=== PATIENT | male | born 1955 | race Caucasian/White ===

== ENCOUNTER 2021-10-18 07:10 | Emergency (ER) | payer OTHER, MEDICARE, SELFPAY ==
[2021-10-18] VITALS (17 sets, daily range): BP systolic 91–174; BP diastolic 56–90; PULSE 58–85; RESP 11–18; TEMP 37.8; O2SAT 95–100; BMI 29.8
--- NOTE | 2021-10-18 07:19 | DI.RAD.S_ITS ---
PROCEDURE: XR CHEST 1V INDICATIONS: syncope TECHNIQUE: One view of the chest was acquired. COMPARISON: [facility], , CHEST 1 VIEW, 03/03/2012, 18:41. FINDINGS: Surgical changes and devices: None. Lungs and pleura: Lungs are clear. No pleural effusions or pneumothorax. Mediastinum: Mediastinal contours appear normal. Heart size is normal. Lungs are hypoinflated possibly due to poor inspiratory effort. Bones and chest wall: No suspicious bony lesions. Overlying soft tissues appear unremarkable. IMPRESSION: No acute cardiopulmonary disease process. Dictated by: Carmen Araujo MD, PhD on 10/18/2021 at 8:03 Approved by: Carmen Araujo MD, PhD on 10/18/2021 at 8:04
--- NOTE | 2021-10-18 07:19 | DI.CT.S_ITS ---
PROCEDURE: CT CERVICAL SPINE WO CON INDICATIONS: syncope, neck pain TECHNIQUE: Noncontrast 3 mm thick sections acquired from the skull base to the T4 level. Sagittal and coronal reformats were then constructed. For radiation dose reduction, the following was used: automated exposure control, adjustment of mA and/or kV according to patient size. COMPARISON: None. FINDINGS: Image quality: Excellent. Bones: No fractures or dislocations. Visualized superior ribs are intact. Spine degenerative disc disease and facet arthropathy. Soft tissues: Prevertebral soft tissues are normal in thickness. No paravertebral hematomas. No apical pneumothoraces. IMPRESSION: No fracture. No acute osseous lesion. If symptoms and/or clinical suspicion for pathology persists, evaluation with MRI should be considered for further assessment. Dictated by: Carmen Araujo MD, PhD on 10/18/2021 at 7:59 Approved by: Carmen Araujo MD, PhD on 10/18/2021 at 8:02
--- NOTE | 2021-10-18 07:19 | DI.CT.S_ITS ---
PROCEDURE: CT HEAD/BRAIN WO CON INDICATIONS: syncope, fall, neck pain TECHNIQUE: Noncontrast 4.5 mm thick angled axial sections acquired from the foramen magnum to the vertex, with coronal and sagittal reformats. For radiation dose reduction, the following was used: automated exposure control, adjustment of mA and/or kV according to patient size. COMPARISON: None. FINDINGS: Image quality: Excellent. CSF spaces: Basal cisterns are patent. No extra-axial fluid collections. The ventricles are symmetric in size and shape. Brain: No intracranial bleeds or masses. There is cerebral volume loss for age, with resultant ventricular and sulcal prominence. There are periventricular and deep white matter chronic small vessel ischemic changes. There is intracranial internal carotid artery atherosclerosis. Skull and face: Calvarium and visualized facial bones appear intact, without suspicious lesions. Sinuses: Visualized sinuses and mastoids are clear. IMPRESSION: No acute intracranial disease process. Dictated by: Carmen Araujo MD, PhD on 10/18/2021 at 7:57 Approved by: Carmen Araujo MD, PhD on 10/18/2021 at 7:58
--- NOTE | 2021-10-18 07:21 | ED_ITS ---
HPI - Syncope General Chief Complaint: Dizziness Stated Complaint: Syncope/SOB Time Seen by Provider: 10/18/21 07:19 Source: patient and EMS Mode of arrival: EMS Limitations: no limitations History of Present Illness HPI narrative: This is a 66-year-old male with a history of gout and anxiety. Patient presents for syncope. He had been up about the house earlier today in his office he felt like he was going to pass out felt the world tunneling in tried to get to the bathroom to wash his face or put some cold water on it and passed out and struck likely his neck on that side of the wall. Patient has had 1 prior syncopal episode about 5 years ago. Because was never found. Patient states he felt fine this morning although he has had some nasal congestion, mild productive cough with clear sputum and sore throat. Patient denies any fevers. He denies any headache, chest pain, abdominal back or flank pain prior to or after the episode. Patient denies any nausea or vomiting. He denies any loss of bowel or bladder control. No recent diarrhea constipation, no dysuria urgency or frequency. Patient has not had any rashes or skin changes. Patient has not had any prior surgeries. No known drug allergies. No tobacco, he stopped drinking alcohol when he started his gout medications, no illicit. He lives independently with his . In route with EMS patient's pressures dropped significantly and he was given push dose pressors x2 which improved his pressors to 120s. He got as low as 60 systolic when upright. Related Data Home Medications Medication Instructions Recorded Confirmed FOLIC ACID/VIT A/VIT B1/VIT 1 tab PO QDAY #0 03/03/12 (#MULTI-VITAMIN) lorazepam 1 mg tablet (Ativan) 0.5 mg PO PRN #0 03/13/12 sertraline 50 mg tablet (Zoloft) 50 mg PO QDAY #0 03/13/12 Previous Rx's Medication Instructions Recorded ondansetron 4 mg disintegrating 4 mg SUBLINGUAL Q4HP PRN #15 odt 06/30/17 tablet (Zofran ODT) Review of Systems Review of Systems ROS Unobtainable: All systems reviewed & are unremarkable except as noted in HPI and below Patient History Medical History Gout Social History Smoking Status: Former smoker Exam Narrative Exam Narrative: GEN: well nourished, ill-appearing, alert and oriented x 3, patient appears to be in mild distress. HEENT: Atraumatic, pupils are equal round reactive to light, extraocular movements are intact, nares are clear, TMs are clear with no fluid, there is no conjunctival pallor. Throat is clear without any exudates, erythema, tonsillar enlargement or uvular deviation, patient is in C-collar. No vertebral tenderness. HEART: Regular rate and rhythm without murmur, clicks, rubs. Pulses are equal in upper and lower extremities LUNGS:Lungs clear to auscultation, no wheezes, rales, crackles, chest moves symmetrically ABD:bowel sounds normal, soft, non-tender, no guarding, rebound, rigidity, no masses noted, no hepatosplenomegaly :No CVA tenderness MSCL: Non-tender, no muscle atrophy, muscles strength 5/5 upper and lower extremities, full range of motion NEURO:CN 2-12 intact, sensation normal SKIN: No rash, erythema or ecchymosis noted. Initial Vital Signs Initial Vital Signs: Vital Signs Temperature 100.1 F H 10/18/21 07:14 Pulse Rate 69 10/18/21 07:14 Respiratory Rate 18 10/18/21 07:14 Blood Pressure 154/78 H 10/18/21 07:14 Pulse Oximetry 99 10/18/21 07:14 Course Orders Ordered: Discontinued Medications Sodium Chloride (Normal Saline 0.9%) 1,000 mls @ 150 mls/hr IV CONT GAB Last Infusion: 10/18/21 10:24 Dose: 0 mls/hr Documented by: Infusion: 10/18/21 09:21 Dose: 999 mls/hr Documented by: Admin: 10/18/21 07:28 Dose: 150 mls/hr Documented by: SOCORRO Sodium Chloride (Normal Saline 0.9%) 1,000 mls @ 1,000 mls/hr IV BOLUS ONE Stop: 10/18/21 10:18 Last Admin: 10/18/21 09:21 Dose: Not Given Documented by: SOCORRO Reevaluation(s) Reevaluation #1: reviewed findings so far. Plan for repeat trop/EKG at 2 hours patient is feeling much better. Reevaluation #2: Patient ambulating to the bathroom without issue. Time: 10:26 Vital Signs Vital signs: Vital Signs - 8 hr 10/18/21 07:14 10/18/21 07:21 10/18/21 07:27 Temperature 100.1 F H 100.1 F H Pulse Rate 69 70 70 Respiratory Rate 18 16 18 Blood Pressure 154/78 H 154/78 H Pulse Oximetry 99 99 100 10/18/21 07:30 10/18/21 07:45 10/18/21 08:00 Temperature Pulse Rate 70 72 70 Respiratory Rate 14 12 Blood Pressure 155/84 H 165/90 H 165/89 H Pulse Oximetry 100 99 99 10/18/21 08:14 10/18/21 08:15 Temperature Pulse Rate 74 73 Respiratory Rate 12 18 Blood Pressure 170/85 H 174/82 H Pulse Oximetry 98 98 MDM - Syncope Lab Data Result diagrams: 10/18/21 07:10 10/18/21 07:10 Labs: Lab Results 10/18/21 10/18/21 10/18/21 Range/Units 07:10 07:10 07:10 WBC 5.2 (4.5-11.0) X10^3/uL RBC 4.55 (4.5-5.9) X10^6/uL Hgb 13.5 (13.5-17.5) g/dL Hct 39.4 L (41-53) % MCV 86.6 (80-100) fL MCH 29.7 (26-34) PG MCHC 34.2 (30-36) % RDW 13.9 (11.6-14.8) % Plt Count 179 (150-400) X10^3/uL Neut % (Auto) 70.9 (50-75) % Lymph % (Auto) 16.2 L (25-40) % Kerr % (Auto) 12.0 (3-14) % Eos % (Auto) 0.4 L (2-4) % Baso % (Auto) 0.5 (0-2) % Neut # (Auto) 3700 (8526-4184) /uL Lymph # (Auto) 800 L (7169-5063) /uL Kerr # (Auto) 600 (0-900) /uL Eos # (Auto) 0 (0-450) /uL Baso # (Auto) 0 (0-100) /uL PT 11.8 (10.1-12.7) SECONDS INR 1.0 (0.9-1.3) APTT 31 (26.4-36.2) SECONDS D-Dimer 280 H (<230) ng/mL Sodium 141 (137-145) mmol/L Potassium 4.3 (3.4-5.1) mmol/L Chloride 110 H (98-107) mmol/L Carbon Dioxide 21 L (22-32) mmol/L BUN 27 H (9-20) mg/dL Creatinine 1.12 (0.66-1.25) mg/dL Estimated GFR > 60 (>60) mL/min BUN/Creatinine Ratio 24.1 H (6-22) Glucose 130 H (80-110) mg/dL Lactate (0.7-2.1) mmol/L Calcium 8.2 L (8.4-10.2) mg/dL Total Bilirubin 0.5 (0.2-1.3) mg/dL AST 33 (17-59) IU/L ALT 26 (<50) IU/L Alkaline Phosphatase 107 (38-126) U/L Total Creatine Kinase 73 (55-170) U/L CK-MB (CK-2) TNP CK-MB (CK-2) Rel Index TNP Troponin I < 0.012 (0.01-0.034) ng/mL NT-Pro-B Natriuret Pep 85 (<125) pg/mL Total Protein 7.3 (6.3-8.2) g/dL Albumin 3.8 (3.5-5.0) g/dL Globulin 3.5 (1.7-4.1) g/dL Albumin/Globulin Ratio 1.1 (1.0-2.8) Lipase 92 (23-300) U/L Procalcitonin 0.10 (<0.5) ng/mL Urine Color Urine Appearance Urine pH (4.5-8.0) Ur Specific Montgomery (1.000-1.035) Urine Protein (Negative) Urine Glucose (UA) (Negative) g/dL Urine Ketones (NEGATIVE) Urine Occult Blood (Negative) Urine Nitrate (Negative) Urine Bilirubin (NEGATIVE) Urine Urobilinogen (0.2) E.U./dL Ur Leukocyte Esterase (NEGATIVE) Urine RBC (0-5/HPF) Urine WBC (0-5/HPF) Urine Bacteria (None) Ur Culture Indicated? SARS-CoV-2 (PCR) (Negative) 10/18/21 10/18/21 10/18/21 Range/Units 07:10 07:10 08:43 WBC (4.5-11.0) X10^3/uL RBC (4.5-5.9) X10^6/uL Hgb (13.5-17.5) g/dL Hct (41-53) % MCV (80-100) fL MCH (26-34) PG MCHC (30-36) % RDW (11.6-14.8) % Plt Count (150-400) X10^3/uL Neut % (Auto) (50-75) % Lymph % (Auto) (25-40) % Kerr % (Auto) (3-14) % Eos % (Auto) (2-4) % Baso % (Auto) (0-2) % Neut # (Auto) (6768-2534) /uL Lymph # (Auto) (7194-1285) /uL Kerr # (Auto) (0-900) /uL Eos # (Auto) (0-450) /uL Baso # (Auto) (0-100) /uL PT (10.1-12.7) SECONDS INR (0.9-1.3) APTT (26.4-36.2) SECONDS D-Dimer (<230) ng/mL Sodium (137-145) mmol/L Potassium (3.4-5.1) mmol/L Chloride (98-107) mmol/L Carbon Dioxide (22-32) mmol/L BUN (9-20) mg/dL Creatinine (0.66-1.25) mg/dL Estimated GFR (>60) mL/min BUN/Creatinine Ratio (6-22) Glucose (80-110) mg/dL Lactate 2.1 (0.7-2.1) mmol/L Calcium (8.4-10.2) mg/dL Total Bilirubin (0.2-1.3) mg/dL AST (17-59) IU/L ALT (<50) IU/L Alkaline Phosphatase (38-126) U/L Total Creatine Kinase (55-170) U/L CK-MB (CK-2) CK-MB (CK-2) Rel Index Troponin I (0.01-0.034) ng/mL NT-Pro-B Natriuret Pep (<125) pg/mL Total Protein (6.3-8.2) g/dL Albumin (3.5-5.0) g/dL Globulin (1.7-4.1) g/dL Albumin/Globulin Ratio (1.0-2.8) Lipase (23-300) U/L Procalcitonin (<0.5) ng/mL Urine Color Yellow Urine Appearance Clear Urine pH 7.0 (4.5-8.0) Ur Specific Montgomery 1.010 (1.000-1.035) Urine Protein Negative (Negative) Urine Glucose (UA) Negative (Negative) g/dL Urine Ketones Negative (NEGATIVE) Urine Occult Blood Trace-lysed (Negative) Urine Nitrate Negative (Negative) Urine Bilirubin Negative (NEGATIVE) Urine Urobilinogen 0.2 (0.2) E.U./dL Ur Leukocyte Esterase Negative (NEGATIVE) Urine RBC 1-5/hpf (0-5/HPF) Urine WBC 1-5/hpf (0-5/HPF) Urine Bacteria Occasional (0-1) (None) Ur Culture Indicated? Cult not indicated SARS-CoV-2 (PCR) Positive H (Negative) 10/18/21 Range/Units 09:26 WBC (4.5-11.0) X10^3/uL RBC (4.5-5.9) X10^6/uL Hgb (13.5-17.5) g/dL Hct (41-53) % MCV (80-100) fL MCH (26-34) PG MCHC (30-36) % RDW (11.6-14.8) % Plt Count (150-400) X10^3/uL Neut % (Auto) (50-75) % Lymph % (Auto) (25-40) % Kerr % (Auto) (3-14) % Eos % (Auto) (2-4) % Baso % (Auto) (0-2) % Neut # (Auto) (6552-4365) /uL Lymph # (Auto) (9255-0605) /uL Kerr # (Auto) (0-900) /uL Eos # (Auto) (0-450) /uL Baso # (Auto) (0-100) /uL PT (10.1-12.7) SECONDS INR (0.9-1.3) APTT (26.4-36.2) SECONDS D-Dimer (<230) ng/mL Sodium (137-145) mmol/L Potassium (3.4-5.1) mmol/L Chloride (98-107) mmol/L Carbon Dioxide (22-32) mmol/L BUN (9-20) mg/dL Creatinine (0.66-1.25) mg/dL Estimated GFR (>60) mL/min BUN/Creatinine Ratio (6-22) Glucose (80-110) mg/dL Lactate (0.7-2.1) mmol/L Calcium (8.4-10.2) mg/dL Total Bilirubin (0.2-1.3) mg/dL AST (17-59) IU/L ALT (<50) IU/L Alkaline Phosphatase (38-126) U/L Total Creatine Kinase (55-170) U/L CK-MB (CK-2) CK-MB (CK-2) Rel Index Troponin I < 0.012 (0.01-0.034) ng/mL NT-Pro-B Natriuret Pep (<125) pg/mL Total Protein (6.3-8.2) g/dL Albumin (3.5-5.0) g/dL Globulin (1.7-4.1) g/dL Albumin/Globulin Ratio (1.0-2.8) Lipase (23-300) U/L Procalcitonin (<0.5) ng/mL Urine Color Urine Appearance Urine pH (4.5-8.0) Ur Specific Montgomery (1.000-1.035) Urine Protein (Negative) Urine Glucose (UA) (Negative) g/dL Urine Ketones (NEGATIVE) Urine Occult Blood (Negative) Urine Nitrate (Negative) Urine Bilirubin (NEGATIVE) Urine Urobilinogen (0.2) E.U./dL Ur Leukocyte Esterase (NEGATIVE) Urine RBC (0-5/HPF) Urine WBC (0-5/HPF) Urine Bacteria (None) Ur Culture Indicated? SARS-CoV-2 (PCR) (Negative) Imaging Data Chest x-ray: Radiologist's Impression: Yahir Valadez??66??M??1955 ? Allergy/Adv: Not Recorded Close Chest CTA (Signed) Hanna Chen - 10/18/[address] (Signed) Carmen Araujo - 10/18/21 Chest X-Ray (Signed) Carmen Araujo - 10/18/[address] (Signed) Carmen Araujo - 10/18/21 Launch?Image [address] [address] XRay Report Signed Patient: Yahir Valadez MR#: [id number] : 1955 Acct:[id number] Age/Sex: 66 / M Date of Service: 10/18/21 Loc: ED Accession Number: [id number] ?? Procedure: XR chest 1V Ordering Provider: Joann Harrison D.O. PROCEDURE:? XR CHEST 1V ? INDICATIONS:? syncope ? TECHNIQUE:? One view of the chest was acquired.? ? COMPARISON:? [facility], , CHEST 1 VIEW, 03/03/2012, 18:41. ? FINDINGS:? ? Surgical changes and devices:? None.? ? Lungs and pleura:? Lungs are clear.? No pleural effusions or pneumothorax.? ? Mediastinum:? Mediastinal contours appear normal.? Heart size is normal.? Lungs are hypoinflated possibly due to poor inspiratory effort.? ? Bones and chest wall:? No suspicious bony lesions.? Overlying soft tissues appear unremarkable.? ? IMPRESSION:? No acute cardiopulmonary disease process. ? ? Dictated by: Carmen Araujo MD, PhD on 10/18/2021 at 8:03 ? ? Approved by: Carmen Araujo MD, PhD on 10/18/2021 at 8:04 CT scan - head: Radiologist's Impression: [address] [address] [address] Scan Report Signed Patient: Yahir Valadez MR#: [id number] : 1955 Acct:[id number] Age/Sex: 66 / M Date of Service: 10/18/21 Loc: ED Accession Number: [id number] ?? Procedure: CT head/brain wo con Ordering Provider: Joann Harrison D.O. PROCEDURE:? CT HEAD/BRAIN WO CON ? INDICATIONS:? syncope, fall, neck pain ? TECHNIQUE:? Noncontrast 4.5 mm thick angled axial sections acquired from the foramen magnum to the vertex, with coronal and sagittal reformats.? For radiation dose reduction, the following was used:? automated exposure control, adjustment of mA and/or kV according to patient size.? ? COMPARISON:? None. ? FINDINGS:? Image quality:? Excellent.? ? CSF spaces:? Basal cisterns are patent.? No extra-axial fluid collections.? The ventricles are symmetric in size and shape.? ? Brain:? No intracranial bleeds or masses.? There is cerebral volume loss for age, with resultant ventricular and sulcal prominence.? There are periventricular and deep white matter chronic small vessel ischemic changes.? There is intracranial internal carotid artery atherosclerosis.? ? Skull and face:? Calvarium and visualized facial bones appear intact, without suspicious lesions.? ? Sinuses:? Visualized sinuses and mastoids are clear.? ? IMPRESSION:? No acute intracranial disease process. ? ? Dictated by: Carmen Araujo MD, PhD on 10/18/2021 at 7:57 ? ? Approved by: Carmen Araujo MD, PhD on 10/18/2021 at 7:58?? CT - cervical spine: Radiologist's Impression: [place] [address] CT Scan Report Signed Patient: Yahir Valadez MR#: [id number] : 1955 Acct:[id number] Age/Sex: 66 / M Date of Service: 10/18/21 Loc: ED Accession Number: [id number] ?? Procedure: CT head/brain wo con Ordering Provider: Joann Harrison D.O. PROCEDURE:? CT HEAD/BRAIN WO CON ? INDICATIONS:? syncope, fall, neck pain ? TECHNIQUE:? Noncontrast 4.5 mm thick angled axial sections acquired from the foramen magnum to the vertex, with coronal and sagittal reformats.? For radiation dose reduction, the following was used:? automated exposure control, adjustment of mA and/or kV according to patient size.? ? COMPARISON:? None. ? FINDINGS:? Image quality:? Excellent.? ? CSF spaces:? Basal cisterns are patent.? No extra-axial fluid collections.? The ventricles are symmetric in size and shape.? ? Brain:? No intracranial bleeds or masses.? There is cerebral volume loss for age, with resultant ventricular and sulcal prominence.? There are periventricular and deep white matter chronic small vessel ischemic changes.? There is intracranial internal carotid artery atherosclerosis.? ? Skull and face:? Calvarium and visualized facial bones appear intact, without suspicious lesions.? ? Sinuses:? Visualized sinuses and mastoids are clear.? ? IMPRESSION:? No acute intracranial disease process. ? ? Dictated by: Carmen Araujo MD, PhD on 10/18/2021 at 7:57 ? ? Approved by: Carmen Araujo MD, PhD on 10/18/2021 at 7:58?? CT scan - chest: Radiologist's Impression: [address] [address] [address] Scan Report Signed Patient: Yahir Valadez MR#: [id number] : 1955 Acct:[id number] Age/Sex: 66 / M Date of Service: 10/18/21 Loc: ED Accession Number: [id number] ?? Procedure: CT angio chest PE protocol Ordering Provider: Joann Harrison D.O. PROCEDURE:? CT ANGIO CHEST PE PROTOCOL ? INDICATIONS:? syncope, +covid ? TECHNIQUE:? After the administration of intravenous contrast, 2 mm thick sections acquired from the pulmonary apices to the posterior costophrenic angles.? 3-dimensional maximum intensity projection (MIP) coronal and sagittal reformats were then acquired through the thorax.? For radiation dose reduction, the following was used:? automated exposure control, adjustment of mA and/or kV according to patient size.? ? COMPARISON:? [facility], CR, XR CHEST 1V, 10/18/2021, 7:28. ? FINDINGS:? Image quality:? Excellent.? ? Pulmonary arteries:? Pulmonary arteries are normal in size, and demonstrate no intraluminal filling defects to suggest central pulmonary embolism.? ? Lungs and pleura:? Subpleural nodule within the right lung base laterally measuring 8 mm. No pleural effusions or pneumothorax.? Central and peripheral airways are patent.? ? Mediastinum:? Heart size is normal, without pericardial effusion.? No mediastinal or hilar adenopathy.? Thoracic aorta is normal in caliber and enhancement.? Esophagus is normal in caliber.? Small hiatal hernia.? ? Bones and chest wall:? No suspicious bony lesions.? Ribs and thoracic spine appear intact throughout.? Thyroid gland is within normal limits.? No axillary or supraclavicular adenopathy.? ? Abdomen:? Visualized upper abdominal solid organs appear normal in the early arterial phase of enhancement.? ? IMPRESSION:? 1. No acute process. 2. No pulmonary embolus. 3. Right lung base nodule .? Follow-up is recommended as below. 4. Small hiatal hernia. ? Fleischner Society criteria for SOLID lung nodule followup.? Nodule size (mm)Low-risk patientHigh-risk patient<6 (single or multiple)No routine followup.Optional CT at 12 months. 6-8 (single or multiple)CT at 6-12 months, then optional CT at 18-24 mo.CT at 6-12 months, then CT at 18-24 months.? >8 (single)CT, PET-CT, or biopsy at 3 months. Same as for low-risk pts.? >8 (multiple)CT at 3-6 months, then optional CT at 18-24 mo.CT at 3-6 months, then CT at 18-24 months.? Recommendations do not apply to lung cancer screening, patients with immunosuppression, or patients with known primary cancer. ? ? ? Dictated by: Hanna Chen M.D. on 10/18/2021 at 8:21 ? ? Approved by: Hanna Chen M.D. on 10/18/2021 at 8:24?? ECG Data Attestation: I personally reviewed and interpreted this ECG as follows: Prior ECG tracings: available for review Interpretation: Sinus rhythm rate of 78 MA 142 QRS of 90 QTC of 401. No acute ST changes noted. Patient has prior EKG from 06/30/2017. EKG 2. Rate of 67 MA 136 QRS 86 and QTC of 407. Sinus rhythm with no acute ST changes appreciated from prior today or 2018. MDM Narrative Medical decision making narrative: This is a 66-year-old male who comes emergency department with complaint of syncopal episode. Patient has had some upper respiratory congestion, cough that is been mildly productive for the past 2 days. He has been afebrile. He states he was up this morning is feeling okay then started feel lightheaded like he was going to pass out he tried to get to the bathroom and lost consciousness. Patient did hit his neck. He does not have obvious trauma but had some mild pain in the paraspinal region for EMS and was placed in C-collar. Patient was hypotensive in the field, maintain consciousness for EMS but they did give push dose pressors. As well as about a L of fluids and patient received additional fluids in the department. Pressures have been improving. Head CT, C-spine and chest x-ray show no acute changes, he is COVID positive today he is unvaccinated, his history of gout and anxiety but no other high risk factors besides age, CBC, electrolytes renal function and initial heart enzyme are negative with the sinus rhythm on EKG. D-dimer was mildly elevated and with patient's positive COVID status and syncopal episode CT angio was performed to rule out pulmonary emboli with no acute changes found. Lactate is negative and cultures were obtained secondary to potential bacterial infection but none has been found at this point. Urine is negative. Repeat EKG and troponin were initiated and are negative with no acute changes. Patient does not appear to meet high risk criteria for Paxlovid. He is ambulating in the department. Discharge home with return precautions plan for follow-up as he has had 2 syncopal episodes in the past 3-5 years according to him and his . Discharge Plan Departure Patient Disposition: Home Clinical Impression: Syncope, COVID-19 virus infection Instructions: DI for Syncope in Adults (Fainting), DI for COVID-19 (Suspected or Confirmed ) Activity Restrictions/Additional Instructions: You have tested positive for coronavirus today. You also had a syncopal episode or passed out. Would follow-up with your physician they may wish to older a Holter monitor or ZIO patch to monitor your heart rhythm at home and do additional outpatient testing. You may continue home medications. Make sure you are drinking plenty of water and hydrating regularly. Please return for new or worsening symptoms, increasing shortness of breath, passing out, chest pain, persistent vomiting, new weakness numbness, difficulty ambulating, swelling in her extremities or other new or concerning symptoms. Prescriptions: No Action FOLIC ACID/VIT A/VIT B1/VIT (#MULTI-VITAMIN) 1 tab PO QDAY Qty: 0 0RF lorazepam [Ativan] 1 MG tablet 0.5 mg PO PRN Qty: 0 0RF sertraline [Zoloft] 50 MG tablet 50 mg PO QDAY Qty: 0 0RF ondansetron [Zofran ODT] 4 MG tablet,disintegrating 4 mg Sublingual Q4HP PRNQty: 15 0RF Referrals: Taiwo Munoz MD [Non-Staff] - Visit Report Forms: Patient Portal/API
[2021-10-18] MEDS: SODIUM CHLORIDE 0.9% 1,000 ML 150 ML IV (07:28)
[2021-10-18 07:32] LABS: Add Manual Diff / Slide Review NO; Basophils Absolute Auto 0 /uL (0-100); Basophils Percent Auto 0.5 % (0-2); Eosinophils Absolute Auto 0 /uL (0-450); Eosinophils Percent Auto 0.4 % (2-4); Hematocrit 39.4 % (41-53); Hemoglobin 13.5 g/dL (13.5-17.5); Lymphocytes Absolute Auto 800 /uL (1100-4500); Lymphocytes Percent Auto 16.2 % (25-40); Mean Corpuscular HGB Conc 34.2 % (30-36); Mean Corpuscular Hemoglobin 29.7 PG (26-34); Mean Corpuscular Volume 86.6 fL (80-100); Monocytes Absolute Auto 600 /uL (0-900); Neutrophils Absolute Auto 3700 /uL (1500-7000); Neutrophils Percent Auto 70.9 % (50-75); Platelet Count 179 X10^3/uL (150-400); Red Blood Cell Count 4.55 X10^6/uL (4.5-5.9); Red Cell Distribution Width 13.9 % (11.6-14.8); White Blood Cell Count 5.2 X10^3/uL (4.5-11.0)
[2021-10-18 07:33] LABS: Prothrombin Time 11.8 SECONDS (10.1-12.7)
[2021-10-18 07:36] LABS: D Dimer 280 ng/mL (<230); PTT Partial Thromboplastin Tim 31 SECONDS (26.4-36.2)
[2021-10-18 07:39] LABS: Lactate (Lactic Acid) 2.1 mmol/L (0.7-2.1)
[2021-10-18 07:40] LABS: Alanine Aminotransferase 26 IU/L (<50); Albumin 3.8 g/dL (3.5-5.0); Albumin Globulin Ratio 1.1 (1.0-2.8); Alkaline Phosphatase 107 U/L (38-126); Aspartate Aminotransferase 33 IU/L (17-59); BUN Creatinine Ratio 24.1 (6-22); Bilirubin Total 0.5 mg/dL (0.2-1.3); Blood Urea Nitrogen 27 mg/dL (9-20); Calcium 8.2 mg/dL (8.4-10.2); Carbon Dioxide 21 mmol/L (22-32); Chloride 110 mmol/L (98-107); Creatine Kinase 73 U/L (55-170); Estimated Glomerular Filt Rate > 60 mL/min (>60); Globulin 3.5 g/dL (1.7-4.1); Glucose 130 mg/dL (80-110); HEMOLYSIS 46 (0-50); Lipase 92 U/L (23-300); Potassium 4.3 mmol/L (3.4-5.1); Sodium 141 mmol/L (137-145); Total Protein 7.3 g/dL (6.3-8.2)
[2021-10-18 07:45] LABS: COVID19 -Nasal RAPID POSITIVE (Negative)
[2021-10-18 07:52] LABS: NT-proBNP (BNP-Adult 18+) 85 pg/mL (<125); Troponin I < 0.012 ng/mL (0.01-0.034)
--- NOTE | 2021-10-18 07:55 | DI.CT.S_ITS ---
PROCEDURE: CT ANGIO CHEST PE PROTOCOL INDICATIONS: syncope, +covid TECHNIQUE: After the administration of intravenous contrast, 2 mm thick sections acquired from the pulmonary apices to the posterior costophrenic angles. 3-dimensional maximum intensity projection (MIP) coronal and sagittal reformats were then acquired through the thorax. For radiation dose reduction, the following was used: automated exposure control, adjustment of mA and/or kV according to patient size. COMPARISON: [facility], CR, XR CHEST 1V, 10/18/2021, 7:28. FINDINGS: Image quality: Excellent. Pulmonary arteries: Pulmonary arteries are normal in size, and demonstrate no intraluminal filling defects to suggest central pulmonary embolism. Lungs and pleura: Subpleural nodule within the right lung base laterally measuring 8 mm. No pleural effusions or pneumothorax. Central and peripheral airways are patent. Mediastinum: Heart size is normal, without pericardial effusion. No mediastinal or hilar adenopathy. Thoracic aorta is normal in caliber and enhancement. Esophagus is normal in caliber. Small hiatal hernia. Bones and chest wall: No suspicious bony lesions. Ribs and thoracic spine appear intact throughout. Thyroid gland is within normal limits. No axillary or supraclavicular adenopathy. Abdomen: Visualized upper abdominal solid organs appear normal in the early arterial phase of enhancement. IMPRESSION: 1. No acute process. 2. No pulmonary embolus. 3. Right lung base nodule . Follow-up is recommended as below. 4. Small hiatal hernia. Fleischner Society criteria for SOLID lung nodule followup. Nodule size (mm)Low-risk patientHigh-risk patient<6 (single or multiple)No routine followup.Optional CT at 12 months. 6-8 (single or multiple)CT at 6-12 months, then optional CT at 18-24 mo.CT at 6-12 [address], [address] at 18-24 months. >8 (single)CT, PET-CT, or biopsy at 3 months. Same as for low-risk pts. >8 (multiple)CT at 3-6 months, then optional CT at 18-24 mo.CT at 3-6 months, then CT at 18-24 months. Recommendations do not apply to lung cancer screening, patients with immunosuppression, or patients with known primary cancer. Dictated by: Hanna Chen M.D. on 10/18/2021 at 8:21 Approved by: Hanna Chen M.D. on 10/18/2021 at 8:24
[2021-10-18 08:55] LABS: Appearance Urine UA CLEAR; Bilirubin Urine UA NEGATIVE (NEGATIVE); Color Urine UA YELLOW; Glucose Urine UA NEGATIVE (Negative); Ketones Urine UA NEGATIVE (NEGATIVE); Leukocyte Esterase Urine UA NEGATIVE (NEGATIVE); Nitrite Urine UA NEGATIVE (Negative); Occult Blood Urine UA TRACE-LYSED (Negative); Protein Urine UA NEGATIVE (Negative); Urobilinogen Urine UA 0.2 E.U./dL (0.2)
[2021-10-18 09:07] LABS: Bacteria Urine Occasional (0-1); Culture Indicated Urine Cult Not Indicated; RBC Urine 1-5/HPF (0-5/HPF); WBC Urine 1-5/HPF (0-5/HPF)
[2021-10-18 09:25] LABS: Reflexed Lactate in 2 Hours Y
[2021-10-18 10:12] LABS: Troponin I < 0.012 ng/mL (0.01-0.034)
--- NOTE | 2021-10-18 10:25 | PC.NURSE ---
ambulated well. Denies dizziness, shortness of breath
== END 2021-10-18 10:48 | disposition home or self-care (01) ==
PROVIDERS: Emergency Provider Emergency Medicine; PCP Student in an Organized Health Care Education/Training Program
DX: R55 Syncope and collapse (principal); U07.1 COVID-19; R42 Dizziness and giddiness
CPT/HCPCS: 36415; 70450; 71045; 71275; 72125; 80053; 81001; 82550; 83605; 83690; 83880; 84145; 84484; 85025; 85379; 85610; 85730; 87040; 87635; 93005; 96360; 96361; 99284; C9803; Q9967